=== PATIENT | female | born 1970 | race Caucasian/White ===

== ENCOUNTER → 2018-09-01 09:13 | Outpatient (CLI) | payer OTHER, SELFPAY ==
--- NOTE | 2018-09-01 | DI.MG.S_ITS ---
BILATERAL DIGITAL SCREENING MAMMOGRAM 3D/2D WITH CAD: 09/01/2018 CLINICAL: Routine screening. Family history of breast cancer. Comparison is made to exams dated: 02/04/2008 mammogram - [facility] and 01/20/2014 mammogram - [facility]. The tissue of both breasts is heterogeneously dense. This may lower the sensitivity of mammography. Current study was also evaluated with a Computer Aided Detection (CAD) system. No significant masses, calcifications, or other findings are seen in either breast. There has been no significant interval change. IMPRESSION: NEGATIVE There is no mammographic evidence of malignancy. A 1 year screening mammogram is recommended. This exam was interpreted at Station ID: [id number]. NOTE: For mammograms, a report in lay terms will be sent to the patient. Approximately 15% of breast malignancies will not be visualized mammographically. In the management of a palpable breast mass, a negative mammogram must not discourage biopsy of a clinically suspicious lesion. Electronically Signed By: Clemente [email or web address]/[email or web address]:09/01/2018 17:32:33 letter sent: Normal Exam ACR BI-RADS Category 1: Negative [id number]
--- NOTE | 2018-09-01 | DI.CT.S_ITS ---
PROCEDURE: CT ABDOMEN PELVIS W CON INDICATIONS: Endometriosis TECHNIQUE: After the administration of oral and intravenous contrast, 5 mm thick sections acquired from the diaphragms to the symphysis. 5 mm thick coronal and sagittal reformats were performed. For radiation dose reduction, the following was used: automated exposure control, adjustment of mA and/or kV according to patient size. COMPARISON: None. FINDINGS: Image quality: Excellent. ABDOMEN: Lung bases: There is minimal dependent atelectasis. Heart size is normal. Solid organs: There are 3 small ovoid circumscribed hypodense foci in the liver which are too small to characterize but likely represent cysts. The gallbladder is not visualized and likely surgically absent. Biliary system is non-dilated. Pancreas enhances normally. Spleen is normal in size and enhancement. No adrenal nodules. Kidneys are normal in size and enhancement, without hydronephrosis. Peritoneum and bowel: Stomach, small bowel, and colon loops are normal in caliber and wall thickness. The appendix is normal in appearance. There is a small amount of free fluid in the pelvis which appears within physiologic limits. No free air. There is a small soft tissue nodule within the omentum in the left lower quadrant measuring up to 0.8 x 0.8 cm. Nodes and vessels: No retroperitoneal or mesenteric adenopathy. Aorta and inferior vena cava are normal in caliber. Miscellaneous: No ventral hernias. PELVIS: Genitourinary: Bladder wall thickness is normal. The uterus and ovaries appeared within normal size limits. There is hyperemia of the uterus with a small amount of endometrial fluid compatible physiologic changes. There is a peripheral enhancing cyst in the left ovary measuring up to 1.3 cm compatible with a corpus luteal cyst. A small cyst within the right ovary measuring up to 1.5 cm likely representing a follicular cyst. No discrete adnexal mass identified. Miscellaneous: No inguinal hernias or adenopathy. Bones: No suspicious bony lesions. No vertebral body compression fractures. IMPRESSION: 1. Small 0.8 cm omental soft tissue nodule in the left lower quadrant suggestive of a peritoneal implant possibly from patient's history of endometriosis. 2. Peripherally enhancing cyst in the left ovary likely representing a corpus luteal cyst. A probable follicular cyst is also demonstrated in the right ovary. No adnexal masses. Dictated by: Harjinder Deleon M.D. on 09/01/2018 at 14:20 Approved by: Harjinder Deleon M.D. on 09/01/2018 at 14:27
== END ==
PROVIDERS: PCP Physician Assistant; Visit Provider Nurse Practitioner Family
DX: Z12.31 Encounter for screening mammogram for malignant neoplasm of breast (principal); Z80.3 Family history of malignant neoplasm of breast; N80.9 Endometriosis, unspecified; N83.202 Unspecified ovarian cyst, left side; N83.201 Unspecified ovarian cyst, right side
CPT/HCPCS: 74177; 77063; 77067; Q9967